=== PATIENT | female | born 1960 | race Caucasian/White ===

== ENCOUNTER 2017-02-28 20:26 | Emergency (ER) | payer BC ==
[~2017-02-28] VITALS: Ht 167.6 cm; Wt 97.5 kg
[2017-02-28 22:37] VITALS: BP 143/101
== END 2017-02-28 23:01 | disposition home or self-care (01) ==
LOC: ER 20:35 → EDBD 20:35 → ER 23:01
DX: R22.0 Localized swelling, mass and lump, head (principal); L72.3 Sebaceous cyst
CPT/HCPCS: 70450

== ENCOUNTER 2018-11-16 07:40 | Emergency (ER) | payer BC, OTHER ==
[~2018-11-16] VITALS: Ht 165.1 cm; Wt 95.3 kg
[2018-11-16 09:11] LABS: Basophils # (auto) 0.1 uL; Basophils % (auto) 0.8 % (0.0-2.0); Eosinophils # (auto) 0.1 uL; Eosinophils % (auto) 0.6 % (0.0-7.0); Hematocrit 46.2 % (36.0-46.0); Hemoglobin 15.8 g/dL (12.2-16.2); Lymphocytes # (auto) 1.4 uL; Lymphocytes % (auto) 14.8 % (10.0-50.0); Mean Corpuscular Hemoglobin 30.4 pg (28.0-32.0); Mean Corpuscular Hgb Conc. 34.2 g/dL (32.0-36.0); Mean Corpuscular Volume 88.7 fL (80.0-100.0); Monocytes # (auto) 0.8 uL; Monocytes % (auto) 8.3 % (0.0-12.0); Neutrophils # (auto) 7.3 uL; Neutrophils % (auto) 75.5 % (37.0-80.0); Nucleated Red Blood Cells % 0.1 %; Platelet Count (auto) 302 10^3/uL (140-450); Red Blood Cells 5.21 10^6/uL (4.0-5.20); Red Cell Distribution Width 13.2 % (11.8-14.3); White Blood Cell 9.7 10^3/uL (4.4-10.8)
[2018-11-16] MEDS ORDERED: SODIUM CHLORIDE 0.9% 1,000 ML IV ONE (09:28)
[2018-11-16 09:31] LABS: Alanine Aminotransferase 28 U/L (13-56); Albumin 3.8 g/dL (3.4-5.0); Anion Gap 9 (5-15); Aspartate Aminotransferase 15 U/L (15-37); BUN/Creatinine Ratio 17.9; Blood Urea Nitrogen 17 mg/dL (7-18); Calcium 9.6 mg/dL (8.5-10.1); Carbon Dioxide 23 mmol/L (21-32); Chloride 110 mmol/L (98-107); GFR African American 78 mL/min; GFR Non-African American 65 mL/min; Glucose 106 mg/dL (74-106); Magnesium 2.3 mg/dL (1.6-2.6); Potassium 3.9 mmol/L (3.5-5.1); Sodium 142 mmol/L (136-145)
[2018-11-16 09:36] LABS: Alkaline Phosphatase 82 U/L (45-117); Bilirubin, Total 0.4 mg/dL (0.2-1.0)
[2018-11-16 10:14] LABS: Urine WBC None Seen /hpf (0 - 5)
[2018-11-16 10:45] LABS: Urine Bacteria NONE SEEN /hpf (None Seen); Urine Blood Negative /uL (Negative); Urine Specific Gravity 1.018 (1.001-1.035)
[2018-11-16 12:35] VITALS: BP 102/70
== END 2018-11-16 12:39 | disposition home or self-care (01) ==
LOC: ER 07:40
DX: I47.1 Supraventricular tachycardia (principal); Z88.0 Allergy status to penicillin; Z90.89 Acquired absence of other organs
CPT/HCPCS: 36415; 71046; 80053; 81001; 82962; 83735; 84443; 84484; 85025; 93005; 94761